=== PATIENT | female | born 1950 | race African-American/Black ===

== ENCOUNTER 2016-12-03 06:47 | Day surgery (SDC) | payer BC, OTHER ==
[~2016-12-03] VITALS: Ht 157.5 cm; Wt 102.1 kg
[2016-12-03] MEDS ORDERED: SIMETHICONE 40 MG/0.6 ML ML ONE (07:39)
[2016-12-03] MEDS: MIDAZOLAM HCL 5 MG/5 ML VIAL ONE ×2 (08:34→08:36)
[2016-12-03] MEDS: fentaNYL CITRATE/PF 100 MCG/2 ML AMP ONE ×2 (08:34→08:36)
[2016-12-03 12:27] VITALS: BP 146/72; PULSE 62; RESP 16
== END 2016-12-03 10:10 | disposition home or self-care (01) ==
LOC: SDS 06:47 → SMU 07:28 → SDS 10:10
PROVIDERS: ATTEND Internal Medicine
DX: Z12.11 Encounter for screening for malignant neoplasm of colon (principal); E78.5 Hyperlipidemia, unspecified; Z85.3 Personal history of malignant neoplasm of breast
CPT/HCPCS: 45378; J2250; J3010; J7030